=== PATIENT | male | born 1960 | race Two or more races ===

== ENCOUNTER → 2016-06-25 | Outpatient (CLI) | payer MEDICARE ==
--- NOTE | 2016-06-25 14:50 | US ---
EXAMINATION TYPE: US kidneys/renal and bladder DATE OF EXAM: 06/25/2016 2:11 PM COMPARISON: US CLINICAL HISTORY: N18.3 CKD STAGE 3. CKD EXAM MEASUREMENTS: Right Kidney: 9.7 x 4.7 x 4.5 cm Left Kidney: 9.5 x 5.5 x 4.7 cm Right Kidney: wnl Left Kidney: wnl Bladder: wnl Bilateral Jets seen: No There is no evidence for hydronephrosis at this point in time. No nephrolithiasis is seen. No rao s are identified. The urinary bladder is anechoic. Bilateral ureteral jets are seen. IMPRESSION: Unremarkable study.
== END | disposition home or self-care (01) ==
LOC: RADUSWWP 13:51
PROVIDERS: ATTEND Internal Medicine Nephrology
DX: N18.3 Chronic kidney disease, stage 3 (moderate) (principal)
CPT/HCPCS: 76770

== ENCOUNTER 2017-01-15 17:11 | Emergency (ER) | payer MEDICARE ==
[2017-01-15 17:20] VITALS: RESP 18
[2017-01-15 17:48] LABS: Basophils # (A) 0.1 k/uL (0-0.2); Basophils % (A) 0 %; CHCM 33.4; Eosinophils # (A) 0.2 k/uL (0-0.7); Eosinophils % (A) 1 %; HCT 43.6 % (39.0-53.0); HDW 2.26; HGB 14.2 gm/dL (13.0-17.5); Luc % (Auto) 3; Lymphocytes # (A) 4.6 k/uL (1.0-4.8); Lymphocytes % (A) 41 %; MCH 31.4 pg (25.0-35.0); MCHC 32.7 g/dL (31.0-37.0); MCV 96.2 fL (80.0-100.0); Mean Platelet Volume 7.3; Monocytes # (A) 0.8 k/uL (0-1.0); Monocytes % (A) 7 %; Neutrophils # (A) 5.4 k/uL (1.3-7.7); Neutrophils % (A) 48 %; RBC 4.53 m/uL (4.30-5.90); RDW 12.3 % (11.5-15.5); WBC 11.3 k/uL (3.8-10.6); WBC (Perox) 10.85
[2017-01-15 18:03] LABS: ALT 31 U/L (21-72); AST 26 U/L (17-59); Alkaline Phosphatase 67 U/L (38-126); Anion Gap 8 mmol/L; Blood Urea Nitrogen 18 mg/dL (9-20); Calcium 9.5 mg/dL (8.4-10.2); Carbon Dioxide 23 mmol/L (22-30); Chloride 110 mmol/L (98-107); Glucose 55 mg/dL (74-99); Magnesium 2.2 mg/dL (1.6-2.3); Non-African American GFR(MDRD) >60 (>60 ml/min/1.73 sqM); Potassium 4.7 mmol/L (3.5-5.1); Sodium 141 mmol/L (137-145); Total Bilirubin 0.3 mg/dL (0.2-1.3); Total Protein 7.2 g/dL (6.3-8.2)
--- NOTE | 2017-01-15 18:05 | ED ---
General Adult HPI - General Chief complaint: Chest Pain Stated complaint: chest pain Time Seen by Provider: 01/15/17 17:13 Source: patient, RN notes reviewed, old records reviewed Mode of arrival: EMS Limitations: no limitations - History of Present Illness Initial comments: This is a 56-year-old male to the ER for evaluation of chest pain. Chest pain is severely elevated blood sugar and difficult to control blood sugar. Patient' s blood sugar drops from severely high numbers to severely low numbers. Patient 's history of heart disease history pacemaker history of stents history of CABG. Patient states he's been having some chest pain as well as his uncontrolled blood sugar. No shortness of breath no nausea vomiting. At this time patient states he feels well, was able to eat here in the ER which helped his low blood sugar. Again denies fever travel history. Patient states he a stress test about 6 months ago which was normal - Related Data Home Medications Medication Instructions Recorded Confirmed Aspirin EC [Ecotrin] 162 mg PO DAILY 09/30/13 01/15/17 Baclofen [Lioresal] 10 mg PO HS 09/30/13 01/15/17 Furosemide [Lasix] 40 mg PO DAILY 09/30/13 01/15/17 Insulin Glargine [Lantus] 45 unit SQ HS 09/30/13 01/15/17 Lisinopril [Zestril] 2.5 mg PO DAILY 09/30/13 01/15/17 Metoprolol Tartrate [Lopressor] 50 mg PO TID 09/30/13 01/15/17 Spironolactone [Aldactone] 12.5 mg PO DAILY 09/30/13 01/15/17 Lovastatin [Mevacor] 20 mg PO DAILY 05/07/15 01/15/17 INSULIN LISPRO (humaLOG) [humaLOG] See Protocol SQ ACHS 01/15/17 01/15/17 Multivitamins, Thera [Multivitamin 1 tab PO DAILY 01/15/17 01/15/17 (formulary)] Vitamin B Complex 1 cap PO DAILY 01/15/17 01/15/17 Allergies Allergy/AdvReac Type Severity Reaction Status Date / Time No Known Allergies Allergy Verified 01/15/17 17:38 Review of Systems ROS Statement: Those systems with pertinent positive or pertinent negative responses have been documented in the HPI. ROS Other: All systems not noted in ROS Statement are negative. Past Medical History Past Medical History: Coronary Artery Disease (CAD), COPD, Diabetes Mellitus, Myocardial Infarction ([place]) Additional Past Medical History / Comment(s): STERNAL INFECTION, NEUROPATHY, See Dr Sanford H&P Last Myocardial Infarction Date:: 2011 History of Any Multi-Drug Resistant Organisms: None Reported Past Surgical History: AICD, Coronary Bypass/CABG, Heart Catheterization With Stent, Pacemaker Additional Past Surgical History / Comment(s): CABG 2011 Past Anesthesia/Blood Transfusion Reactions: No Reported Reaction Date of Last Stent Placement:: 2011 Type of Cardiac Device: AICD Device Placement Date:: 03/2012 Past Psychological History: Depression Smoking Status: Current some day smoker Past Alcohol Use History: None Reported Past Drug Use History: Marijuana - Past Family History Mother Family Medical History: Cancer Father Family Medical History: Cancer General Exam Limitations: no limitations General appearance: alert, in no apparent distress Head exam: Present: atraumatic, normocephalic, normal inspection Eye exam: Present: normal appearance, PERRL, EOMI. Absent: scleral icterus, conjunctival injection, periorbital swelling ENT exam: Present: normal exam, mucous membranes moist Neck exam: Present: normal inspection. Absent: tenderness, meningismus, lymphadenopathy Respiratory exam: Present: normal lung sounds bilaterally. Absent: respiratory distress, wheezes, rales, rhonchi, stridor Cardiovascular Exam: Present: regular rate, normal rhythm, normal heart sounds. Absent: systolic murmur, diastolic murmur, rubs, gallop, clicks GI/Abdominal exam: Present: soft, normal bowel sounds. Absent: distended, tenderness, guarding, rebound, rigid Extremities exam: Present: normal inspection, full ROM, normal capillary refill. Absent: tenderness, pedal edema, joint swelling, calf tenderness Back exam: Present: normal inspection Neurological exam: Present: alert, oriented X3, CN II-XII intact Psychiatric exam: Present: normal affect, normal mood Skin exam: Present: warm, dry, intact, normal color. Absent: rash Course Vital Signs 01/15/17 01/15/17 01/15/17 17:16 18:20 19:29 Temperature 98.3 F 98.3 F Pulse Rate 69 73 82 Respiratory 18 18 18 Rate Blood Pressure 140/82 133/67 115/85 O2 Sat by Pulse 99 99 97 Oximetry 01/15/17 19:50 Temperature 98.2 F Pulse Rate 74 Respiratory 18 Rate Blood Pressure 118/57 O2 Sat by Pulse 100 Oximetry - Reevaluation(s) Reevaluation #1: At this point patient states he is still asymptomatic, said to like to be discharged home EKG Findings - EKG Comments: EKG Findings:: EKG shows normal sinus rhythm rate of 67, HI 146, QRS 98, QTc 416 Medical Decision Making - Medical Decision Making 56-year-old ER for evaluation of chest pain, history of heart disease as well as blood sugar control issues. Patient states he has adequate follow-up, patient with negative test results elective be discharged home. - Lab Data Result diagrams: 01/15/17 17:24 01/15/17 17:24 Lab Results 01/15/17 01/15/17 01/15/17 Range/Units 17:20 17:24 17:24 WBC 11.3 H (3.8-10.6) k/uL RBC 4.53 (4.30-5.90) m/uL Hgb 14.2 (13.0-17.5) gm/dL Hct 43.6 (39.0-53.0) % MCV 96.2 (80.0-100.0) fL MCH 31.4 (25.0-35.0) pg MCHC 32.7 (31.0-37.0) g/dL RDW 12.3 (11.5-15.5) % Plt Count 302 (150-450) k/uL Neutrophils % 48 % Lymphocytes % 41 % Monocytes % 7 % Eosinophils % 1 % Basophils % 0 % Neutrophils # 5.4 (1.3-7.7) k/uL Lymphocytes # 4.6 (1.0-4.8) k/uL Monocytes # 0.8 (0-1.0) k/uL Eosinophils # 0.2 (0-0.7) k/uL Basophils # 0.1 (0-0.2) k/uL PT (9.0-12.0) sec INR (<1.2) APTT (22.0-30.0) sec Sodium (137-145) mmol/L Potassium (3.5-5.1) mmol/L Chloride (98-107) mmol/L Carbon Dioxide (22-30) mmol/L Anion Gap mmol/L BUN (9-20) mg/dL Creatinine (0.66-1.25) mg/dL Est GFR (MDRD) Af Amer (>60 ml/min/1.73 sqM) Est GFR (MDRD) Non-Af (>60 ml/min/1.73 sqM) Glucose (74-99) mg/dL POC Glucose (mg/dL) 65 L (75-99) mg/dL POC Glu [facility] [place] ID McDaid, Sandra Calcium (8.4-10.2) mg/dL Magnesium (1.6-2.3) mg/dL Total Bilirubin (0.2-1.3) mg/dL AST (17-59) U/L ALT (21-72) U/L Alkaline Phosphatase (38-126) U/L Total Creatine Kinase 121 (55-170) U/L CK-MB (CK-2) 1.4 (0.0-2.4) ng/mL CK-MB (CK-2) Rel Index 1.2 Troponin I <0.012 (0.000-0.034) ng/mL Total Protein (6.3-8.2) g/dL Albumin (3.5-5.0) g/dL Lipase (23-300) U/L 01/15/17 01/15/17 01/15/17 Range/Units 17:24 17:24 19:24 WBC (3.8-10.6) k/uL RBC (4.30-5.90) m/uL Hgb (13.0-17.5) gm/dL Hct (39.0-53.0) % MCV (80.0-100.0) fL MCH (25.0-35.0) pg MCHC (31.0-37.0) g/dL RDW (11.5-15.5) % Plt Count (150-450) k/uL Neutrophils % % Lymphocytes % % Monocytes % % Eosinophils % % Basophils % % Neutrophils # (1.3-7.7) k/uL Lymphocytes # (1.0-4.8) k/uL Monocytes # (0-1.0) k/uL Eosinophils # (0-0.7) k/uL Basophils # (0-0.2) k/uL PT 10.3 (9.0-12.0) sec INR 1.0 (<1.2) APTT 22.5 (22.0-30.0) sec Sodium 141 (137-145) mmol/L Potassium 4.7 (3.5-5.1) mmol/L Chloride 110 H (98-107) mmol/L Carbon Dioxide 23 (22-30) mmol/L Anion Gap 8 mmol/L BUN 18 (9-20) mg/dL Creatinine 1.05 (0.66-1.25) mg/dL Est GFR (MDRD) Af Amer >60 (>60 ml/min/1.73 sqM) Est GFR (MDRD) Non-Af >60 (>60 ml/min/1.73 sqM) Glucose 55 L (74-99) mg/dL POC Glucose (mg/dL) 139 H (75-99) mg/dL POC Glu [facility] Messenger Luis Alberto Santana Calcium 9.5 (8.4-10.2) mg/dL Magnesium 2.2 (1.6-2.3) mg/dL Total Bilirubin 0.3 (0.2-1.3) mg/dL AST 26 (17-59) U/L ALT 31 (21-72) U/L Alkaline Phosphatase 67 (38-126) U/L Total Creatine Kinase (55-170) U/L CK-MB (CK-2) (0.0-2.4) ng/mL CK-MB (CK-2) Rel Index Troponin I (0.000-0.034) ng/mL Total Protein 7.2 (6.3-8.2) g/dL Albumin 4.0 (3.5-5.0) g/dL Lipase 213 (23-300) U/L - Radiology Data Radiology results: report reviewed (Chest x-rays negative for acute disease), image reviewed Disposition Clinical Impression: Atypical chest pain Disposition: HOME SELF-CARE Condition: Good Instructions: Chest Pain (ED) Referrals: Karis Nichole MD [Primary Care Provider] - 1-2 days
[2017-01-15 18:06] LABS: Partial Thromboplastin Time 22.5 sec (22.0-30.0); Prothrombin Time 10.3 sec (9.0-12.0)
[2017-01-15 18:13] LABS: Creatine Kinase 121 U/L (55-170)
[2017-01-15 18:18] LABS: Glucose,Whole Blood 65 mg/dL (75-99)
--- NOTE | 2017-01-15 18:20 | XR ---
EXAMINATION TYPE: XR chest 2V DATE OF EXAM: 01/15/2017 COMPARISON: 09/30/2013 HISTORY: Chest pain TECHNIQUE: Frontal and lateral views of the chest are obtained. FINDINGS: There is no heart failure nor confluent pneumonic infiltrate. There are no hilar masses. T here is left axillary pacemaker with the lead tip in the right ventricle. There are sternal wires. [place] thorax is intact. IMPRESSION: No active cardiopulmonary disease. Normal heart. Inspiration is improved compared to old exam.
[2017-01-15 18:25] LABS: Creatine Kinase MB 1.4 ng/mL (0.0-2.4); Troponin I <0.012 ng/mL (0.000-0.034)
[2017-01-15 20:02] VITALS: BP 118/57; PULSE 74; TEMP 98.2
[2017-01-15 20:04] LABS: Glucose,Whole Blood 139 mg/dL (75-99)
== END 2017-01-15 19:50 | disposition home or self-care (01) ==
LOC: EC 17:11
DX: R07.89 Other chest pain (principal); E11.9 Type 2 diabetes mellitus without complications; I25.10 Atherosclerotic heart disease of native coronary artery without angina pectoris; I25.2 Old myocardial infarction; Z95.5 Presence of coronary angioplasty implant and graft; Z95.1 Presence of aortocoronary bypass graft; Z95.0 Presence of cardiac pacemaker; Z95.810 Presence of automatic (implantable) cardiac defibrillator; F17.200 Nicotine dependence, unspecified, uncomplicated; Z79.899 Other long term (current) drug therapy; Z79.82 Long term (current) use of aspirin; Z79.4 Long term (current) use of insulin
CPT/HCPCS: 36415; 71020; 80053; 82550; 82553; 83690; 83735; 84484; 85025; 85610; 85730; 93005; 99285

== ENCOUNTER → 2017-08-12 | Outpatient (CLI) | payer MEDICARE ==
[2017-08-13 01:05] LABS: Hemoglobin A1C 7.7 % (4.0-6.0)
== END | disposition home or self-care (01) ==
LOC: LABWHC1 16:07
PROVIDERS: ATTEND Internal Medicine
DX: E11.65 Type 2 diabetes mellitus with hyperglycemia (principal)
CPT/HCPCS: 36415; 82043; 82570; 83036